=== PATIENT | female | born 1985 | race Caucasian/White ===

== ENCOUNTER 2025-02-16 21:41 | Emergency (ER) | payer BC | END 2025-02-17 00:48 | disposition home or self-care (01) | LOC: ED 21:41 | DX: M70.22 Olecranon bursitis, left elbow (principal); L03.114 Cellulitis of left upper limb; Z88.1 Allergy status to other antibiotic agents; Z88.2 Allergy status to sulfonamides; Z79.899 Other long term (current) drug therapy ==